=== PATIENT | female | born 1960 ===

== ENCOUNTER 2016-08-26 17:18 | Emergency (ER) | payer OTHER ==
[2016-08-26 17:27] VITALS: BP 124/69; PULSE 68; RESP 18; TEMP 99.3; O2SAT 99
--- NOTE | 2016-08-26 18:18 | ED PDOC ---
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 no associated fever, cp, sob, n/v/d/c, vaginal bleeding/discharge , flank pain. seen by dentist fri and taken two doses of augmentin for toothache. Past Medical History Reviewed: Historical Data, Nursing Documentation, Vital Signs Vital Signs: Last Vital Signs Temp 99.3 F 08/26/16 17:26 Pulse 68 08/26/16 17:26 Resp 18 08/26/16 17:26 BP 124/69 08/26/16 17:26 Pulse Ox 99 08/26/16 17:26 - Medical History PMH: Hypothyroidism - Family History Family History: States: No Known Family Hx - Social History Current smoker - smoking cessation education provided: No Alcohol: None Drugs: Denies - Allergies Allergies/Adverse Reactions: Allergies Allergy/AdvReac Type Severity Reaction Status Date / Time No Known Allergies Allergy Verified 08/26/16 17:25 Review of Systems ROS Statement: Except As Marked, All Systems Reviewed And Found Negative Gastrointestinal: Positive for: Abdominal Pain Genitourinary Female: Positive for: Dysuria Musculoskeletal: Positive for: Back Pain Physical Exam - Reviewed Nursing Documentation Reviewed: Yes Vital Signs Reviewed: Yes - Physical Exam Appears: Positive for: Well, Non-toxic, No Acute Distress Skin: Positive for: Normal Color, Warm, DRY Cardiovascular/Chest: Positive for: Regular Rate, Rhythm Respiratory: Positive for: CNT, Normal Breath Sounds Gastrointestinal/Abdominal: Positive for: Normal Exam, Bowel Sounds, Soft, Tenderness (mild suprapubic tenderness). Negative for: Mass, Distended, Guarding, Rebound Back: Positive for: Normal Inspection. Negative for: L CVA Tenderness, R CVA Tenderness, Vertebral Tenderness, Decreased ROM, Muscle Spasm Extremity: Positive for: Normal ROM. Negative for: Tenderness Neurologic/Psych: Positive for: Alert, Oriented, Gait (steady). Negative for: Motor/Sensory Deficits - ECG O2 Sat by Pulse Oximetry: 99 Disposition - Clinical Impression Clinical Impression: UTI (urinary tract infection) - Patient ED Disposition Is Patient to be Admitted: No - Disposition Referrals: [facility] [Outside] Disposition: Routine/Home Disposition Time: 18:19 Condition: GOOD Additional Instructions: to continue augmentin and f/u pmd. urine cx results will result in 2-3 days. return to ED for severe symptoms. Instructions: Urinary Tract Infection in Women (ED)
== END 2016-08-26 18:40 | disposition home or self-care (01) ==
LOC: H.ER 17:18
DX: N39.0 Urinary tract infection, site not specified (principal)